=== PATIENT | male | born 1990 | race Caucasian/White ===

== ENCOUNTER → 2020-06-01 | Outpatient (CLI) | payer OTHER ==
[~2020-06-01] MED LIST: No Historical Meds
== END ==
LOC: M LABSMTC 10:30
PROVIDERS: ATTEND Family Medicine
DX: Z20.828 Contact with and (suspected) exposure to other viral communicable diseases (principal)

== ENCOUNTER 2021-09-22 13:16 | Emergency (ER) | payer OTHER ==
[~2021-09-22] VITALS: Ht 167.6 cm; Wt 70.9 kg
[2021-09-22] MEDS ORDERED: NS 1,000 ML IV ONE (14:20)
[2021-09-22] MEDS ORDERED: ONDANSETRON 4MG/2ML VIAL IV ONE (14:20)
[2021-09-22] MEDS ORDERED: BENZONATATE 100MG CAPSULE PO ONE (14:20)
[2021-09-22] MEDS ORDERED: KETOROLAC 30 MG/ML 1ML VIAL IV ONE (14:20)
[2021-09-22 14:57] LABS: BASO % 0.3 % (0.0-1.0); EOS % 0.3 % (0.0-3.0); HEMATOCRIT 43.7 % (42.0-52.0); HEMOGLOBIN 15.9 g/dl (13.5-17.5); LYMPH # 1.8 10^3/uL (1.5-5.0); LYMPH % 25.3 % (24.0-44.0); MEAN CORPUSCULAR HEMOGLOBIN 34.3 pg (27.0-33.0); MEAN CORPUSCULAR HGB CONC 36.4 g/dl (32.0-36.5); MEAN CORPUSCULAR VOLUME 94.2 fl (80.0-96.0); MONO # 0.6 10^3/uL (0.0-0.8); MONO % 8.8 % (2.0-8.0); NEUTROPHILS # 4.5 10^3/uL (1.5-8.5); PLATELET COUNT, AUTOMATED 146 10^3/uL (150-450); RED BLOOD COUNT 4.64 10^6/uL (4.30-6.10); WHITE BLOOD COUNT 6.9 10^3/uL (4.0-10.0)
[2021-09-22 15:14] LABS: ERYTHROCYTE SEDIMENTATION RATE 2 mm/hr (0-15)
[2021-09-22 15:24] LABS: ALBUMIN 4.2 GM/DL (3.2-5.2); ALT/SGPT 22 U/L (12-78); BILIRUBIN,DIRECT 0.2 MG/DL (0.0-0.2); BILIRUBIN,TOTAL 0.6 MG/DL (0.2-1.0); BLOOD UREA NITROGEN 13 MG/DL (7-18); CALCIUM LEVEL 9.5 MG/DL (8.5-10.1); CARBON DIOXIDE LEVEL 26 MEQ/L (21-32); CHLORIDE LEVEL 108 MEQ/L (98-107); CREATININE FOR GFR 0.77 MG/DL (0.70-1.30); GLOMERULAR FILTRATION RATE > 60.0 (>60); GLUCOSE, FASTING 87 MG/DL (70-100); LIPASE 63 U/L (73-393); POTASSIUM SERUM 3.7 MEQ/L (3.5-5.1); SODIUM LEVEL 140 MEQ/L (136-145); TOTAL PROTEIN 7.3 GM/DL (6.4-8.2)
[2021-09-22] MEDS ORDERED: ONDA4TAB6 PO (15:42)
[2021-09-22] MEDS ORDERED: BENZ200C70 PO (15:42)
[2021-09-22 16:05] VITALS: BP 134/80
== END 2021-09-22 16:32 | disposition home or self-care (01) ==
LOC: M ED 13:16
DX: J06.9 Acute upper respiratory infection, unspecified (principal); R11.2 Nausea with vomiting, unspecified; R19.7 Diarrhea, unspecified; F17.210 Nicotine dependence, cigarettes, uncomplicated
CPT/HCPCS: 71045; 80048; 80076; 83690; 85025; 85652; 86140; 87428; 96361; 96374; 96375; 99283; J1885; J2405

== ENCOUNTER → 2021-11-30 | Outpatient (CLI) | payer OTHER ==
[~2021-11-30] MED LIST changes: +BENZ200C70 PO; +ONDA4TAB6 PO
== END ==
LOC: M RAD 09:49
PROVIDERS: ATTEND Physician Assistant
DX: R10.11 Right upper quadrant pain (principal); R11.0 Nausea

== ENCOUNTER → 2022-10-15 | Outpatient (REF) | payer OTHER | LOC: M LAB REF 16:26 | PROVIDERS: ATTEND Physician Assistant | DX: L02.213 Cutaneous abscess of chest wall (principal) ==

== ENCOUNTER → 2022-11-28 | Outpatient (CLI) | payer OTHER ==
[~2022-11-28] MED LIST changes: +KETO10TAB PO; +TAMS1CAP17; +TRAM50TA2
[2022-11-28 12:11] LABS: BASO % 0.4 % (0.0-1.0); EOS # 0.1 10^3/uL (0.0-0.5); EOS % 1.3 % (0.0-3.0); HEMATOCRIT 45.5 % (42.0-52.0); HEMOGLOBIN 15.6 g/dl (13.5-17.5); LYMPH # 1.6 10^3/uL (1.5-5.0); LYMPH % 34.5 % (24.0-44.0); MEAN CORPUSCULAR HEMOGLOBIN 33.2 pg (27.0-33.0); MEAN CORPUSCULAR HGB CONC 34.3 g/dl (32.0-36.5); MEAN CORPUSCULAR VOLUME 96.8 fl (80.0-96.0); MONO # 0.5 10^3/uL (0.0-0.8); MONO % 10.5 % (2.0-8.0); NEUTROPHILS # 2.5 10^3/uL (1.5-8.5); NEUTROPHILS % 53.1 % (36.0-66.0); PLATELET COUNT, AUTOMATED 177 10^3/uL (150-450); WHITE BLOOD COUNT 4.8 10^3/uL (4.0-10.0)
[2022-11-28 12:35] LABS: C REACTIVE PROTEIN QUANTITATIV < 0.40 MG/DL (<1.0); LIPASE 44 U/L (12-53)
[2022-11-28 12:36] LABS: AMYLASE 95 U/L (30-118)
[2022-11-28 12:37] LABS: ALKALINE PHOSPHATASE 65 U/L (46-116); ALT/SGPT 19 U/L (7.0-40); AST/SGOT 11 U/L (<34); BILIRUBIN,TOTAL 0.4 MG/DL (0.3-1.2); BLOOD UREA NITROGEN 17 MG/DL (9-23); CALCIUM LEVEL 9.8 MG/DL (8.5-10.1); CARBON DIOXIDE LEVEL 26 MMOL/L (20-31); CHLORIDE LEVEL 110 MMOL/L (98-107); CREATININE FOR GFR 0.78 MG/DL (0.70-1.30); GLOMERULAR FILTRATION RATE > 60.0 (>60); GLUCOSE, FASTING 100 MG/DL (60-100); POTASSIUM SERUM 4.3 MMOL/L (3.5-5.1); SODIUM LEVEL 142 MMOL/L (136-145); TOTAL PROTEIN 6.8 G/DL (5.7-8.2)
== END ==
LOC: M WUC 09:57
PROVIDERS: ATTEND Physician Assistant
DX: R30.0 Dysuria (principal); M61.452 Other calcification of muscle, left thigh

== ENCOUNTER 2022-12-05 10:57 | Emergency (ER) | payer OTHER ==
[~2022-12-05] VITALS: Ht 162.6 cm; Wt 74.3 kg
[~2022-12-05 10:57] MED LIST changes: -KETO10TAB PO; -TAMS1CAP17; -TRAM50TA2
[2022-12-05] MEDS ORDERED: TRAM50TA2 (11:05)
[2022-12-05] MEDS ORDERED: TAMS1CAP17 (11:05)
[2022-12-05 11:42] LABS: BASO % 0.3 % (0.0-1.0); EOS % 1.1 % (0.0-3.0); HEMATOCRIT 43.3 % (42.0-52.0); HEMOGLOBIN 15.5 g/dl (13.5-17.5); LYMPH # 1.2 10^3/uL (1.5-5.0); LYMPH % 32.7 % (24.0-44.0); MEAN CORPUSCULAR HEMOGLOBIN 33.5 pg (27.0-33.0); MEAN CORPUSCULAR HGB CONC 35.8 g/dl (32.0-36.5); MEAN CORPUSCULAR VOLUME 93.7 fl (80.0-96.0); MONO # 0.5 10^3/uL (0.0-0.8); MONO % 13.4 % (2.0-8.0); NEUTROPHILS # 1.9 10^3/uL (1.5-8.5); NEUTROPHILS % 52.2 % (36.0-66.0); PLATELET COUNT, AUTOMATED 176 10^3/uL (150-450); RED BLOOD COUNT 4.62 10^6/uL (4.30-6.10); WHITE BLOOD COUNT 3.7 10^3/uL (4.0-10.0)
[2022-12-05 12:03] LABS: LIPASE 35 U/L (12-53)
[2022-12-05 12:05] LABS: ALBUMIN 4.2 G/DL (3.2-5.2); ALKALINE PHOSPHATASE 64 U/L (46-116); ALT/SGPT 20 U/L (7.0-40); AMYLASE 81 U/L (30-118); AST/SGOT 21 U/L (<34); BILIRUBIN,DIRECT 0.3 MG/DL (<0.4); BILIRUBIN,TOTAL 0.9 MG/DL (0.3-1.2); BLOOD UREA NITROGEN 9 MG/DL (9-23); CARBON DIOXIDE LEVEL 24 MMOL/L (20-31); CHLORIDE LEVEL 109 MMOL/L (98-107); CREATININE FOR GFR 0.79 MG/DL (0.70-1.30); GLOMERULAR FILTRATION RATE > 60.0 (>60); GLUCOSE, FASTING 104 MG/DL (60-100); POTASSIUM SERUM 4.1 MMOL/L (3.5-5.1); SODIUM LEVEL 140 MMOL/L (136-145); TOTAL PROTEIN 6.8 G/DL (5.7-8.2)
[2022-12-05] MEDS ORDERED: KETOROLAC 30 MG/ML 1ML VIAL IV ONE (12:30)
[2022-12-05] MEDS ORDERED: NS 1,000 ML IV ONE (12:30)
[2022-12-05] MEDS ORDERED: KETO10TAB PO (14:08)
[2022-12-05 14:21] VITALS: BP 132/79; TEMP 97.8; O2SAT 100
[2022-12-05 14:23] LABS: GC DNA AMPLIFICATION NEGATIVE (NEGATIVE)
== END 2022-12-05 14:31 | disposition home or self-care (01) ==
LOC: M ED 10:57
DX: R10.32 Left lower quadrant pain (principal); R19.7 Diarrhea, unspecified; F17.200 Nicotine dependence, unspecified, uncomplicated; Z79.83 Long term (current) use of bisphosphonates; Z79.899 Other long term (current) drug therapy
CPT/HCPCS: 74176; 80048; 80076; 81001; 82150; 83605; 83690; 85025; 87661; 87810; 87850; 93041; 96361; 96374; 99284; J1885

== ENCOUNTER 2023-04-20 09:53 | Emergency (ER) | payer OTHER ==
[~2023-04-20] VITALS: Ht 185.4 cm; Wt 71.4 kg
[~2023-04-20 09:53] MED LIST changes: +KETO10TAB PO; +TAMS1CAP17; +TRAM50TA2
[2023-04-20] MEDS ORDERED: MORPHINE 4 MG/ML 1ML VIAL IV ONE (10:05)
[2023-04-20] MEDS ORDERED: LIDOCAINE 2% 5ML JELLY UROJET TOP ONE (10:25)
[2023-04-20 10:36] LABS: BASO % 0.5 % (0.0-1.0); EOS # 0.1 10^3/uL (0.0-0.5); EOS % 0.9 % (0.0-3.0); HEMATOCRIT 42.2 % (42.0-52.0); HEMOGLOBIN 15.1 g/dl (13.5-17.5); LYMPH # 3.2 10^3/uL (1.5-5.0); LYMPH % 56.5 % (24.0-44.0); MEAN CORPUSCULAR HEMOGLOBIN 33.4 pg (27.0-33.0); MEAN CORPUSCULAR HGB CONC 35.8 g/dl (32.0-36.5); MEAN CORPUSCULAR VOLUME 93.4 fl (80.0-96.0); MONO # 0.5 10^3/uL (0.0-0.8); MONO % 8.6 % (2.0-8.0); NEUTROPHILS # 1.9 10^3/uL (1.5-8.5); NEUTROPHILS % 33.3 % (36.0-66.0); PLATELET COUNT, AUTOMATED 155 10^3/uL (150-450); RED BLOOD COUNT 4.52 10^6/uL (4.30-6.10); WHITE BLOOD COUNT 5.6 10^3/uL (4.0-10.0)
[2023-04-20] MEDS ORDERED: ISOVUE-370 76% 100ML VIAL As Ordered ONE (10:38)
[2023-04-20 11:01] LABS: RSV AMPLIFICATION NEGATIVE (NEGATIVE)
[2023-04-20 11:04] LABS: LIPASE 31 U/L (12-53)
[2023-04-20 11:07] LABS: ALBUMIN 4.2 G/DL (3.2-5.2); ALKALINE PHOSPHATASE 74 U/L (46-116); ALT/SGPT 56 U/L (7.0-40); AST/SGOT 78 U/L (<34); BILIRUBIN,DIRECT 0.4 MG/DL (<0.4); BILIRUBIN,TOTAL 0.8 MG/DL (0.3-1.2); BLOOD UREA NITROGEN 13 MG/DL (9-23); CALCIUM LEVEL 9.4 MG/DL (8.5-10.1); CARBON DIOXIDE LEVEL 27 MMOL/L (20-31); CHLORIDE LEVEL 106 MMOL/L (98-107); CREATININE FOR GFR 0.95 MG/DL (0.70-1.30); GLOMERULAR FILTRATION RATE > 60.0 (>60); GLUCOSE, FASTING 111 MG/DL (60-100); MAGNESIUM LEVEL 1.9 MG/DL (1.8-2.4); POTASSIUM SERUM 3.4 MMOL/L (3.5-5.1); SODIUM LEVEL 143 MMOL/L (136-145)
[2023-04-20] MEDS ORDERED: KETOROLAC 30 MG/ML 1ML VIAL IV ONE (11:15)
[2023-04-20] MEDS ORDERED: TAMSULOSIN 0.4 MG CAP PO ONE (11:15)
[2023-04-20] MEDS ORDERED: NS 1,000 ML IV ONE (11:15)
[2023-04-20 11:16] LABS: AMPHETAMINES LEVEL URINE NEGATIVE (NEGATIVE); BARBITURATES URINE NEGATIVE (NEGATIVE); BENZODIAZEPINES URINE NEGATIVE (NEGATIVE); COCAINE METABOLITE URINE NEGATIVE (NEGATIVE); METHADONE URINE NEGATIVE (NEGATIVE)
[2023-04-20 11:17] LABS: PHENCYCLIDINE URINE NEGATIVE (NEGATIVE)
[2023-04-20 11:18] LABS: CANNABINOIDS URINE POSITIVE (NEGATIVE); OPIATES URINE POSITIVE (NEGATIVE)
[2023-04-20] MEDS ORDERED: ONDANSETRON 4MG 2ML VIAL IV ONE (11:25)
[2023-04-20] MEDS ORDERED: POTASSIUM CHLORIDE 10MEQ SR TABLET PO ONE (11:45)
[2023-04-20] MEDS ORDERED: FLOM0.4C39 PO (13:08)
[2023-04-20] MEDS ORDERED: ONDA4TAB6 PO (13:08)
[2023-04-20] MEDS ORDERED: KETO10TAB PO (13:08)
[2023-04-20 13:45] VITALS: BP 115/59; TEMP 97.9; O2SAT 97
== END 2023-04-20 13:58 | disposition home or self-care (01) ==
LOC: EDBD 09:53 → M ED 09:53
DX: N21.1 Calculus in urethra (principal); F17.200 Nicotine dependence, unspecified, uncomplicated
CPT/HCPCS: 71045; 74177; 80047; 80048; 80076; 80307; 81001; 83605; 83690; 83735; 85025; 87040; 87631; 93005; 93041; 96374; 96375; 99285; J1885; J2405; Q9967

== ENCOUNTER → 2024-10-18 | Outpatient (REF) | payer OTHER ==
[~2024-10-18] MED LIST changes: +ONDA-282 PO; -ONDA4TAB6 PO; +TAMS-18 PO
[2024-10-18 15:12] LABS: ALBUMIN 4.4 G/DL (3.2-5.2); ALKALINE PHOSPHATASE 84 U/L (40-129); ALT/SGPT 15 U/L (7.0-40); AST/SGOT 16 U/L (<34); BILIRUBIN,TOTAL 0.8 MG/DL (0.3-1.2); BLOOD UREA NITROGEN 14 MG/DL (9-23); CARBON DIOXIDE LEVEL 26 MMOL/L (20-31); CHLORIDE LEVEL 108 MMOL/L (98-107); CREATININE FOR GFR 0.89 MG/DL (0.70-1.30); GLOMERULAR FILTRATION RATE > 90.0 (>60); GLUCOSE, FASTING 100 MG/DL (60-100); POTASSIUM SERUM 4.5 MMOL/L (3.5-5.1); SODIUM LEVEL 142 MMOL/L (136-145); TOTAL PROTEIN 7.6 G/DL (5.7-8.2)
[2024-10-18 15:13] LABS: THYROID STIMULATING HORMONE 1.319 uIU/ML (0.55-4.78)
== END ==
LOC: M LAB REF 14:36
PROVIDERS: ATTEND Student in an Organized Health Care Education/Training Program
DX: F41.9 Anxiety disorder, unspecified (principal); F32.A Depression, unspecified; Z68.21 Body mass index [BMI] 21.0-21.9, adult